=== PATIENT | male | born 1935 | race African-American/Black ===

== ENCOUNTER 2017-06-03 12:11 | Emergency (ER) | payer OTHER ==
[~2017-06-03] VITALS: Ht 175.3 cm; Wt 72.6 kg
[2017-06-03] MEDS ORDERED: DOXY100C2 PO (12:48)
--- NOTE | 2017-06-03 12:48 | PHYS DOC ---
Adult General Chief Complaint Chief Complaint: LOWER EXT PAIN [facility] HPI Patient is a 82 year old male who presents with pain to the left great toe. Patient states that 3 weeks ago he was seen by a device sales consultant and had nail trimming done at that time. Patient states over the past 2 weeks he has noticed discomfort in the toe. Patient started noticing redness along the medial aspect of the left great toe over the past couple days. The patient is concerned that he may be developing infection in that toe. The patient attempted contacting his device sales consultant but stated that he would not be able to be seen until next week. The patient denies any somatic symptoms associated. Patient states that the pain worsens whenever he tries to bear weight and walk. Patient has not taken any medications for his symptoms at this time. Review of Systems Review of Systems Constitutional: Denies fever or chills [] Eyes: Denies change in visual acuity, redness, or eye pain [] HENT: Denies nasal congestion or sore throat [] Respiratory: Denies cough or shortness of breath [] Cardiovascular: No additional information not addressed in HPI [] GI: Denies abdominal pain, nausea, vomiting, bloody stools or diarrhea [] : Denies dysuria or hematuria [] Musculoskeletal: Left great toe pain [] Integument: Denies rash or skin lesions [] Neurologic: Denies headache, focal weakness or sensory changes [] Allergies Allergies No known drug allergies Physical Exam Physical Exam Constitutional: Alert, afebrile, appears in mild discomfort. [] HENT: Normocephalic, atraumatic, bilateral external ears normal, oropharynx moist, no oral exudates, nose normal. [] Eyes: PERRLA, EOMI, conjunctiva normal, no discharge. [] Neck: Normal range of motion, no tenderness, supple, no stridor. [] Cardiovascular:Heart rate regular rhythm, no murmur [] Lungs & Thorax: Bilateral breath sounds clear to auscultation [] Abdomen: Bowel sounds normal, soft, no tenderness, no masses, no pulsatile masses. [] Skin: Warm, dry, no erythema, no rash. [] Back: No tenderness, no CVA tenderness. [] Extremities: Mild erythema along nailbed of left great toe, medial tenderness to palpation, no fluctuance, range of motion normal, capillary refill less than 2 seconds. [] Neurologic: Alert and oriented X 3, normal motor function, normal sensory function, no focal deficits noted. [] Current Patient Data Vital Signs Vital Signs Date Time Temp Pulse Resp B/P (MAP) Pulse Ox O2 Delivery O2 Flow Rate FiO2 06/03/17 13:10 97.9 71 15 120/59 (79) 98 Room Air Lab Results None performed EKG EKG Not performed [] Radiology/Procedures Radiology/Procedures Not performed [] Course & Med Decision Making Course & Med Decision Making Pertinent Labs and Imaging studies reviewed. (See chart for details) Patient has findings concerning for early cellulitis of the left great toe. Patient will be started on doxycycline for treatment. Advised use of Aleve and Tylenol as needed for discomfort. Recommended follow-up with the patient's device sales consultant in the next 3-4 days and return to emergency department for any worsening symptoms. Patient voiced understanding and in agreement with treatment plan. Dragon Disclaimer Dragon Disclaimer This chart was dictated in whole or in part using Voice Recognition software in a busy, high-work load, and often noisy Emergency Department environment. It may contain unintended and wholly unrecognized errors or omissions. Departure Departure: Impression: Primary Impression: Cellulitis of toe Disposition: 01 HOME, SELF-CARE Condition: STABLE Referrals: MAYELIN ROSENBERG MD (PCP) Patient Instructions: Cellulitis Additional Instructions: Follow-up with your device sales consultant in the next 3-4 days. Return to the emergency department for any worsening symptoms. Scripts Doxycycline Hyclate (DOXYCYCLINE HYCLATE) 100 Mg Capsule 1 CAP PO BID, #20 CAP Prov: GHAZAL FAM MD 06/03/17 Problem Qualifiers Primary Impression: Cellulitis of toe Laterality: left Qualified Codes: L03.032 - Cellulitis of left toe GHAZAL FAM MD Jun 03, 2017 12:48
[2017-06-03 13:10] VITALS: BP 120/59
== END 2017-06-03 13:15 | disposition home or self-care (01) ==
LOC: ER 12:11
DX: L03.032 Cellulitis of left toe (principal)
CPT/HCPCS: 99283

== ENCOUNTER 2017-07-18 17:50 | Inpatient (IN) | payer OTHER ==
[~2017-07-18] VITALS: Ht 177.8 cm; Wt 75.8 kg
[~2017-07-18 17:50] MED LIST: DOXY100C2 PO
--- NOTE | 2017-07-18 18:53 | PHYS DOC ---
Past History Past Medical History: Arthritis, Diabetes (no medications presently), High Cholesterol, Heart Disease Past Surgical History: Appendectomy, Pacemaker, Other Smoking: Non-smoker Alcohol Use: None Drug Use: None Social History PCP is at Adult [facility] Chief Complaint Chief Complaint: GI PROBLEM HPI HPI Patient is a 82 year old male who presents with abdominal pain. He states this started yesterday around noon. He says the pain is right upper quadrant. No vomiting. He has had a little loose stool, no blood. No urinary complaints. No testicular pain or swelling. He did travel to [place] 2 weeks ago, drove. No fever with this illness. No chest pain. Review of Systems Review of Systems Constitutional: Denies fever or chills Eyes: Denies change in visual acuity, redness, or eye pain HENT: Denies nasal congestion or sore throat Respiratory: Denies cough or shortness of breath Cardiovascular: No chest pain GI: POS abdominal pain, No nausea, vomiting, No bloody stools some loose diarrhea (non watery) : Denies dysuria or hematuria Musculoskeletal: Denies back pain or joint pain Integument: Denies rash or skin lesions Neurologic: Denies headache, focal weakness or sensory changes Allergies Allergies Allergies Coded Allergies Type Severity Reaction Last Updated Verified No Known Drug Allergies 06/03/17 No Physical Exam Physical Exam Constitutional: Well developed, well nourished, no acute distress, non-toxic appearance. HENT: Normocephalic, atraumatic, bilateral external ears normal, oropharynx moist, no oral exudates, nose normal. Eyes: PERRLA, EOMI, conjunctiva normal, no discharge. Neck: Normal range of motion, no tenderness, supple, no stridor. Cardiovascular:Heart rate regular rhythm, no murmur Lungs & Thorax: Bilateral breath sounds clear to auscultation Abdomen: Bowel sounds normal, soft, tenderness to palpation of RUQ, no masses, no pulsatile masses. Skin: Warm, dry, no erythema, no rash. Back: No tenderness, no CVA tenderness. Extremities: No tenderness, no cyanosis, no clubbing, ROM intact, no edema. Neurologic: Alert and oriented X 3, normal motor function, normal sensory function, no focal deficits noted. Psychologic: Affect normal, judgement normal, mood normal. Current Patient Data Vital Signs Vital Signs Date Time Temp Pulse Resp B/P (MAP) Pulse Ox O2 Delivery O2 Flow Rate FiO2 07/18/17 18:10 100.0 83 20 96 Room Air Lab Results Laboratory Tests Test 07/18/17 19:11 White Blood Count 6.7 x10^3/uL (4.0-11.0) Red Blood Count 5.24 x10^6/uL (4.30-5.70) Hemoglobin 14.6 g/dL (13.0-17.5) Hematocrit 44.0 % (39.0-53.0) Mean Corpuscular Volume 84 fL (79-100) Mean Corpuscular Hemoglobin 28 pg (25-35) Mean Corpuscular Hemoglobin Concent 33 g/dL (31-37) Red Cell Distribution Width 16.1 % (11.5-14.5) Platelet Count 153 x10^3/uL (140-400) Neutrophils (%) (Auto) 75 % (31-73) Lymphocytes (%) (Auto) 11 % (24-48) Monocytes (%) (Auto) 13 % (0-9) Eosinophils (%) (Auto) 1 % (0-3) Basophils (%) (Auto) 0 % (0-3) Neutrophils # (Auto) 5.1 x10^3uL (1.8-7.7) Lymphocytes # (Auto) 0.7 x10^3/uL (1.0-4.8) Monocytes # (Auto) 0.9 x10^3/uL (0.0-1.1) Eosinophils # (Auto) 0.0 x10^3/uL (0.0-0.7) Basophils # (Auto) 0.0 x10^3/uL (0.0-0.2) Sodium Level 139 mmol/L (136-145) Potassium Level 4.1 mmol/L (3.5-5.1) Chloride Level 103 mmol/L (98-107) Carbon Dioxide Level 30 mmol/L (21-32) Anion Gap 6 (6-14) Blood Urea Nitrogen 13 mg/dL (8-26) Creatinine 1.5 mg/dL (0.7-1.3) Estimated GFR (Cockcroft-Gault) 54.2 BUN/Creatinine Ratio 9 (6-20) Glucose Level 122 mg/dL (70-99) Calcium Level 9.0 mg/dL (8.5-10.1) Total Bilirubin 0.7 mg/dL (0.2-1.0) Aspartate Amino Transf (AST/SGOT) 16 U/L (15-37) Alanine Aminotransferase (ALT/SGPT) 19 U/L (16-63) Alkaline Phosphatase 98 U/L (46-116) Creatine Kinase 152 U/L (39-308) Troponin I Quantitative 0.111 ng/mL (0-0.055) Total Protein 7.8 g/dL (6.4-8.2) Albumin 3.9 g/dL (3.4-5.0) Albumin/Globulin Ratio 1.0 (1.0-1.7) Lipase 113 U/L (73-393) EKG EKG EKG interpreted by myself at 1846 PM shows sinus rhythm, rate of 82, left cornell axis. PAC noted. No acute ST elevation. Radiology/Procedures Radiology/Procedures CXR: Temperature by myself at 2015 p.m. shows increased vascularity, chronic interstitial changes, pleural effusion versus infiltrate versus atelectasis right lower lobe. Course & Med Decision Making Course & Med Decision Making Evaluated patient upon my arrival on shift. IV fluids established. My differential for abdominal pain includes but is not limited to ; cholelithiasis or cholecystitis; renal stones; ureterolithiasis; pancreatitis; urinary tract infection; bowel obstruction; irritable bowel., AAA At 2000 PM: Lab finalized lab and called with elev Trop. Patient may be having an angina variant presenting as upper abdominal pain. Nitropaste to chest wall. ASA chew. MACE Scoring: History: Highly suspicious (2 points); Moderately suspicious (1 point). Slightly suspicious (0 point). EKG: ST segment depression (2 points). Nonspecific repolarization disturbance ( 1 point). normal (0 point) Age: Greater than 65 (2 points), 65-45 (1 point); less than 45 years old (0 points). Risk factors:> 3 risk factors (2 points), 1-2 risk factors (one point), no risk factors (0 point). Troponin: > 2 times normal (2 points), 1-2 times normal (1 point) normal limits (0 point) Total score: ___6___ Score % pts MACE/n MACE Policy 0-3: 32% 1.9% 0.05% Discharge 4-6: 51% 413/3136 13% 1.3% Observation Risk management 7-10: 17% 518/1045 50% 2.8% Observation Treatment, CAGb My DEYVI score (for NSTEMI) Age >65 1 3 CAD risk factors* 0 Known CAD (Stenosis 50%) 0 ASA use in past 7 days 0 Severe angina ( 2 episodes in 24 hrs) 0 EKG changes >=0.5 mm 0 Pos Cardiac marker 1 DEYVI SCORE [address] Zacarias at 2000 PM and he accepted admission. Will admit to ICU. Consult cardiology tonight. Spoke with Dr. stevens; dose with lovenox tonight and keep NPO. I have spoken with the patient and/or caregivers. I have explained the patient' s condition, diagnosis and treatment plan based on the information available to me at this time. I have answered the patient's and/or caregiver's questions and addressed any concerns. The patient and/or caregivers have as good an understanding of the patient's diagnosis, condition and treatment plan as can be expected at this point. The patient has been stabilized within the capability of the emergency department. The patient will be transported for further care and management or will be moved to an observation or inpatient service. I have communicated with the staff or medical practitioner taking over this patient's care. I spent approximately 30 minutes working and engaged directly in the patient care providing critical care evaluation this includes but not limited to time spent engaged in work directly related to the individual patients care. I spent time at the bedside, reviewing test results, discussing the case with staff, documenting the medical record and time spent with EMS discussing specific treatment issues when the patient presented and during his evaluation. This includes any discussion and updates with family members and/or patient. Dragon Disclaimer Dragon Disclaimer This chart was dictated in whole or in part using Voice Recognition software in a busy, high-work load, and often noisy Emergency Department environment. It may contain unintended and wholly unrecognized errors or omissions. Departure Departure: Impression: Primary Impression: Elevated troponin I level Additional Impressions: Epigastric pain Acute coronary syndrome Disposition: ADMITTED INPATIENT Condition: STABLE Referrals: MAYELIN ROSENBERG MD (PCP) Problem Qualifiers STEVEN JIMENEZ MD Jul 18, 2017 18:53
[2017-07-18 19:48] LABS: BASO % 0 % (0-3); EOS % 1 % (0-3); HEMOGLOBIN 14.6 g/dL (13.0-17.5); LYMPH # 0.7 x10^3/uL (1.0-4.8); LYMPH % 11 % (24-48); MEAN CORPUSCULAR HEMOGLOBIN 28 pg (25-35); MEAN CORPUSCULAR HGB CONC 33 g/dL (31-37); MEAN CORPUSCULAR VOLUME 84 fL (79-100); MONO # 0.9 x10^3/uL (0.0-1.1); MONO % 13 % (0-9); NEUT # 5.1 x10^3uL (1.8-7.7); NEUT % 75 % (31-73); PLATELET COUNT 153 x10^3/uL (140-400); RED BLOOD COUNT 5.24 x10^6/uL (4.30-5.70); RED CELL DISTRIBUTION WIDTH 16.1 % (11.5-14.5); WHITE BLOOD COUNT 6.7 x10^3/uL (4.0-11.0)
[2017-07-18 19:59] LABS: ALBUMIN 3.9 g/dL (3.4-5.0); CREATININE 1.5 mg/dL (0.7-1.3); GFR 54.2; POTASSIUM 4.1 mmol/L (3.5-5.1); TOTAL BILIRUBIN 0.7 mg/dL (0.2-1.0); TOTAL PROTEIN 7.8 g/dL (6.4-8.2)
[2017-07-18] MEDS ORDERED: ASPIRIN 81 MG TAB.CHEW ONE (20:20)
[2017-07-18] MEDS ORDERED: NITROGLYCERIN OINT 1 GM PACKET. TP ONE (20:30)
[2017-07-18] MEDS ORDERED: ASPIRIN 81 MG TAB.CHEW PO ONE (20:30)
[2017-07-18] MEDS ORDERED: ENOXAPARIN ** NOTE DOSE ** SYRINGE SQ ONE (20:45)
[2017-07-18] MEDS ORDERED: NITROGLYCERIN SUBLINGUAL 0.4 MG BOTTLE OF 25. SL PRN ×2 (21:00)
[2017-07-18] MEDS ORDERED: 0.9 % SODIUM CHLORIDE 10 ML DISP.SYRIN. IV PRN (21:00)
[2017-07-18] MEDS ORDERED: ONDANSETRON PF 4 MG/2 ML VIAL. IV PRN (21:00)
[2017-07-18 21:45] VITALS: BP 132/78
[2017-07-18 22:45] VITALS: BP 143/71
--- NOTE | 2017-07-18 23:10 | EKG ---
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
[2017-07-18 23:45] VITALS: BP 129/66
[2017-07-19 00:45] VITALS: BP 140/71
[2017-07-19] MEDS ORDERED: ROSU10TA PO (01:03)
[2017-07-19] MEDS ORDERED: LEVO125T5 PO (01:03)
[2017-07-19] MEDS: MORPHINE SULFATE 2 MG/ML DISP.SYRIN. IV PRN ×2 (01:41→04:36)
[2017-07-19 01:45] VITALS: BP 119/57
[2017-07-19] MEDS ORDERED: IV NORMAL SALINE 1,000ML 1,000 ML IV SCH (01:45)
[2017-07-19 02:45] VITALS: BP 133/67
[2017-07-19 04:00] VITALS: BP 147/75
--- NOTE | 2017-07-19 08:05 | RAD ---
Exam performed: One view chest. Indication: epigastric pain Date of Service: 07/18/2017 10:14 PM Comparison: None available. Single AP upright portable view chest findings: Study somewhat limited due to positioning. Cardiomediastinal silhouette is within limits of normal. Minimal linear opacities in the right lung base probably atelectasis with minimal blunting of the right costophrenic angle. Bipolar pacemaker. Left shoulder arthroplasty. The bony structures are normal. Impression: Right basilar atelectasis with probable pleural effusion or pleural thickening.
[2017-07-19 08:20] LABS: ALBUMIN 3.2 g/dL (3.4-5.0); ALBUMIN/GLOBULIN RATIO 0.9 (1.0-1.7); CALCIUM 8.4 mg/dL (8.5-10.1); CREATININE 1.3 mg/dL (0.7-1.3); GFR 63.9; MAGNESIUM 1.9 mg/dL (1.8-2.4); POTASSIUM 4.5 mmol/L (3.5-5.1); TOTAL BILIRUBIN 1.1 mg/dL (0.2-1.0); TOTAL PROTEIN 6.9 g/dL (6.4-8.2)
[2017-07-19 08:24] LABS: BASO # 0.1 x10^3/uL (0.0-0.2); BASO % 1 % (0-3); EOS % 1 % (0-3); HEMATOCRIT 42.5 % (39.0-53.0); LYMPH # 0.9 x10^3/uL (1.0-4.8); LYMPH % 12 % (24-48); MEAN CORPUSCULAR HEMOGLOBIN 27 pg (25-35); MEAN CORPUSCULAR HGB CONC 33 g/dL (31-37); MEAN CORPUSCULAR VOLUME 83 fL (79-100); MONO # 1.1 x10^3/uL (0.0-1.1); MONO % 15 % (0-9); NEUT % 71 % (31-73); PLATELET COUNT 153 x10^3/uL (140-400); RED BLOOD COUNT 5.12 x10^6/uL (4.30-5.70); RED CELL DISTRIBUTION WIDTH 15.9 % (11.5-14.5)
[2017-07-19 08:27] VITALS: BP 119/67
[2017-07-19] MEDS ORDERED: METOPROLOL SUCC 24HR ER 25 MG TAB.ER.24H. PO SCH (09:30)
[2017-07-19] MEDS ORDERED: ASPIRIN ENTERIC COATED 81 MG TABLET.DR. PO SCH (09:30)
--- NOTE | 2017-07-19 09:54 | PDOC2 ---
CONSULT Date of Admission DATE: 07/19/17 TIME: 09:53 Reason for Consult: chest pain Problem List Problems Medical Problems: (1) Acute coronary syndrome Status: Acute (2) Elevated troponin I level Status: Acute (3) Epigastric pain Status: Acute History of Present Illness Mr Davenport is an 82 year old male with history of hypertension, hyperlipidemia, 15 years of diabetes and PPM. He presents with complaints of pain in right "ribs" that was worse with movement and deep inspiration. He reports he has been assisting his who is wheelchair bound and doing quite a bit of lifting. He denies other complaints of chest discomfort, dyspnea or palpitations. He denies congestive symptoms. He does complain of claudication with walking 3-4 blocks which resolves with rest in 10-15 minutes. He reports that he was told he had blockage from ankles to feet but nothing else. He reports his diabetes has been well controlled with diet for some time. Past Medical History pacemaker hypertension, hyperlipidemia PAD, diabetes mellitus Past Surgical History bilateral shoulder surgeries, pacemaker placement and appendectomy Family History diabetes and hypertension Social History non smoker, no significant ETOH, no illicit drugs Current Medications Current Medications Aspirin (Children'S Aspirin) 324 mg 1X ONCE PO Last administered on 07/18/17 20:24; Start 07/18/17 at 20:30; Stop 07/18/17 at 20:31; Status DC Nitroglycerin (Nitro-Bid Oint) 1 inch 1X ONCE TP Last administered on 20:24; Start 07/18/17 at 20:30; Stop 07/18/17 at 20:31; Status DC Aspirin (Children'S Aspirin) 81 mg STK-MED ONCE .ROUTE ; Start 07/18/17 at 20:20 ; Stop 07/18/17 at 20:21; Status DC Enoxaparin Sodium (Lovenox 80mg Syringe) 80 mg 1X ONCE SQ Last administered on 07/18/17 20:44; Start 07/18/17 at 20:45; Stop 07/18/17 at 20:46; Status DC Ondansetron HCl (Zofran) 4 mg PRN Q4HRS PRN IV NAUSEA/VOMITING Last administered on 07/19/17 01:40; Start 07/18/17 at 21:00; Stop 07/19/17 at 20:59 Morphine Sulfate (Morphine 2mg Syringe) 2 mg PRN Q2HR PRN IV PAIN Last administered on 07/19/17 04:36; Start 07/18/17 at 21:00; Stop 07/19/17 at 20:59 Nitroglycerin (Nitrostat) 0.4 mg PRN Q5MIN PRN SL CHEST PAIN; Start 07/18/17 at 21:00; Stop 07/19/17 at 20:59 Sodium Chloride (Normal Saline Flush) 3 ml QSHIFT PRN IV AFTER MEDS AND BLOOD DRAWS Last administered on 07/19/17 08:08; Start 07/18/17 at 21:00 Nitroglycerin (Nitrostat) 0.4 mg PRN Q5MIN PRN SL CHEST PAIN; Start 07/18/17 at 21:00 Sodium Chloride 1,000 ml @ 100 mls/hr Q10H IV Last administered on 07/19/17 02:33; Start 07/19/17 at 01:45 Aspirin (Aspirin Enteric Coated) 81 mg DAILYWBKFT PO ; Start 07/19/17 at 09:30 Metoprolol Succinate (Toprol Xl) 25 mg DAILY PO ; Start 07/19/17 at 09:30 Active Scripts Active Doxycycline Hyclate 100 Mg Capsule 1 Cap PO BID Reported Levothyroxine Sodium 125 Mcg Tablet 125 Mcg PO DAILY07 Rosuvastatin Calcium 10 Mg Tablet 10 Mg PO QHS Allergies: Coded Allergies: No Known Drug Allergies (Unverified , 06/03/17) Review of System as per HPI or negative General: Alert, Oriented X3, Cooperative, No acute distress HEENT: Atraumatic, EOMI, Mucous membr. moist/pink Lungs: Clear to auscultation, Normal air movement Heart: Regular rate, Normal S1, Normal S2, Other (ESM 2/6) Abdomen: Normal bowel sounds, Soft, No tenderness Extremities: No cyanosis, No edema, Other (palpable DP pulses bilaterally) Neuro: Normal speech, Strength at 5/5 X4 ext Psych/Mental Status: Mental status NL, Mood NL VITALS Vital Signs Date Time Temp Pulse Resp B/P (MAP) Pulse Ox O2 Delivery O2 Flow Rate FiO2 07/19/17 08:27 99.3 66 20 119/67 (84) 97 Nasal Cannula 2.0 Labs Laboratory Tests Test 07/18/17 19:11 07/19/17 01:15 07/19/17 07:11 White Blood Count 6.7 x10^3/uL (4.0-11.0) 7.0 x10^3/uL (4.0-11.0) Red Blood Count 5.24 x10^6/uL (4.30-5.70) 5.12 x10^6/uL (4.30-5.70) Hemoglobin 14.6 g/dL (13.0-17.5) 14.0 g/dL (13.0-17.5) Hematocrit 44.0 % (39.0-53.0) 42.5 % (39.0-53.0) Mean Corpuscular Volume 84 fL (79-100) 83 fL (79-100) Mean Corpuscular Hemoglobin 28 pg (25-35) 27 pg (25-35) Mean Corpuscular Hemoglobin Concent 33 g/dL (31-37) 33 g/dL (31-37) Red Cell Distribution Width 16.1 % (11.5-14.5) 15.9 % (11.5-14.5) Platelet Count 153 x10^3/uL (140-400) 153 x10^3/uL (140-400) Neutrophils (%) (Auto) 75 % (31-73) 71 % (31-73) Lymphocytes (%) (Auto) 11 % (24-48) 12 % (24-48) Monocytes (%) (Auto) 13 % (0-9) 15 % (0-9) Eosinophils (%) (Auto) 1 % (0-3) 1 % (0-3) Basophils (%) (Auto) 0 % (0-3) 1 % (0-3) Neutrophils # (Auto) 5.1 x10^3uL (1.8-7.7) 5.0 x10^3uL (1.8-7.7) Lymphocytes # (Auto) 0.7 x10^3/uL (1.0-4.8) 0.9 x10^3/uL (1.0-4.8) Monocytes # (Auto) 0.9 x10^3/uL (0.0-1.1) 1.1 x10^3/uL (0.0-1.1) Eosinophils # (Auto) 0.0 x10^3/uL (0.0-0.7) 0.0 x10^3/uL (0.0-0.7) Basophils # (Auto) 0.0 x10^3/uL (0.0-0.2) 0.1 x10^3/uL (0.0-0.2) Sodium Level 139 mmol/L (136-145) 139 mmol/L (136-145) Potassium Level 4.1 mmol/L (3.5-5.1) 4.5 mmol/L (3.5-5.1) Chloride Level 103 mmol/L (98-107) 104 mmol/L (98-107) Carbon Dioxide Level 30 mmol/L (21-32) 28 mmol/L (21-32) Anion Gap 6 (6-14) 7 (6-14) Blood Urea Nitrogen 13 mg/dL (8-26) 12 mg/dL (8-26) Creatinine 1.5 mg/dL (0.7-1.3) 1.3 mg/dL (0.7-1.3) Estimated GFR (Cockcroft-Gault) 54.2 63.9 BUN/Creatinine Ratio 9 (6-20) 9 (6-20) Glucose Level 122 mg/dL (70-99) 128 mg/dL (70-99) Calcium Level 9.0 mg/dL (8.5-10.1) 8.4 mg/dL (8.5-10.1) Total Bilirubin 0.7 mg/dL (0.2-1.0) 1.1 mg/dL (0.2-1.0) Aspartate Amino Transf (AST/SGOT) 16 U/L (15-37) 13 U/L (15-37) Alanine Aminotransferase (ALT/SGPT) 19 U/L (16-63) 15 U/L (16-63) Alkaline Phosphatase 98 U/L (46-116) 81 U/L (46-116) Creatine Kinase 152 U/L (39-308) 112 U/L (39-308) Troponin I Quantitative 0.111 ng/mL (0-0.055) 0.142 ng/mL (0-0.055) 0.125 ng/mL (0-0.055) AX-Ctv-N-Type Natriuretic Peptide 1055 pg/mL (0-449) Total Protein 7.8 g/dL (6.4-8.2) 6.9 g/dL (6.4-8.2) Albumin 3.9 g/dL (3.4-5.0) 3.2 g/dL (3.4-5.0) Albumin/Globulin Ratio 1.0 (1.0-1.7) 0.9 (1.0-1.7) Lipase 113 U/L (73-393) Creatine Kinase MB (Mass) 1.1 ng/mL (0.0-3.6) Creatine Kinase MB Relative Index 1.0 % (0-4) Magnesium Level 1.9 mg/dL (1.8-2.4) Images EKG - no acute ischemic changes Assessment/Plan 1. NSTEMI - with risk factors to include hypertension, hyperlipidemia, PAD and 15 year diabetes will plan for transfer for cardiac cath. 2. CP - atypical 3. hypertension - controlled 4. hyperlipidemia - lipids pending 5. diabetes - diet controlled Start aspirin, beta jovanny and obtain echo. Transfer to [facility] for cardiac cath later today. Risks, benefits, and alternatives discussed with patient. Questions answered. POC discussed with Dr Rubi. Problems: AMANDO SU APRN Jul 19, 2017 09:54
[2017-07-19 10:47] VITALS: BP 124/59
--- NOTE | 2017-07-19 14:11 | CARD ---
APPROVED REPORT EXAM: Two-dimensional and M-mode echocardiogram with Doppler and color Doppler. Other Information Quality : Average Rhythm : Pacemaker INDICATION elevated troponin level 2D DIMENSIONS RVDd2.9 (2.9-3.5cm)Left Atrium(2D)4.4 (1.6-4.0cm) IVSd1.6 (0.7-1.1cm)Aortic Root(2D)3.0 (2.0-3.7cm) LVDd5.3 (3.9-5.9cm)LVOT Diameter2.1 (1.8-2.4cm) PWd1.6 (0.7-1.1cm)LVDs4.5 (2.5-4.0cm) FS (%) 14.2 %SV40.4 ml Aortic Valve AoV Peak Samy.199.1cm/sAoV VTI41.3cm AO Peak GR.15.9mmHgLVOT Peak Samy.90.8cm/s LVOT VTI 18.00cmAO Mean GR.10mmHg JANICE (VMAX)1.19jf3NSJ (VTI)1.51cm2 Mitral Valve MV E Sfjdaamx01.2cm/sMV DECEL BATV225qc MV A Bpyiiean51.3cm/sMV HBJ83sk E/A Ratio0.8MV A Rgnzlfiz288he MVA (PHT)3.87cm2 Tricuspid Valve TR P. Mibwjqvo732gn/sRAP FEQCEZAU6xjXi TR Peak Gr.89iaGlYBCI63skJg LEFT VENTRICLE The left ventricle is normal size. There is moderate concentric left ventricular hypertrophy. The Eje ction Fraction is estimated at 45-50%. Basal inferoposterior wall hypokinesis. Tissue Doppler imaging reveals mild left ventricular diastolic dysfunction. Transmitral Doppler flow pattern is Grade I-abn ormal relaxation pattern. RIGHT VENTRICLE The right ventricle is normal size. The right ventricular systolic function is normal. There is a pac emaker lead seen in the right ventricle and atrium. ATRIA The left atrium is mildly dilated. The right atrium size is normal. The interatrial septum is intact with no evidence for an atrial septal defect or patent foramen ovale as noted on 2-D or Doppler imagi ng. AORTIC VALVE The aortic valve is mildly calcified. Doppler and Color Flow revealed no significant aortic regurgita tion. Calculated aortic valve area is 1.5 cm2 with maximum pressure gradient of 16 mmHg and mean pres sure gradient of 10 mmHg. Doppler and color-flow analysis revealed mild aortic stenosis. MITRAL VALVE Mitral annular calcification is borderline. The mitral valve leaflets are thickened. There is no mitr al valve stenosis. Doppler and Color Flow revealed mild mitral regurgitation. TRICUSPID VALVE The tricuspid valve is normal in structure and function. Doppler and Color Flow revealed trace to mil d tricuspid regurgitation. The PA pressure was estimated at 30 mmHg. There is no tricuspid valve sten osis. PULMONIC VALVE The pulmonic valve is not well visualized. Doppler and Color Flow revealed no pulmonic valvular regur gitation. There is no pulmonic valvular stenosis. GREAT VESSELS The aortic root is normal in size. Pulmonary veins not recorded. The IVC was not visualized. PERICARDIAL EFFUSION There is no evidence of significant pericardial effusion. Critical Notification Date: 07/19/2017 Time: 10:44 Other Discipline : Zita Salas APRN Critical Value: Yes <Conclusion> Basal inferoposterior wall hypokinesis. The Ejection Fraction is estimated at 45-50%. Transmitral Doppler flow pattern is Grade I-abnormal relaxation pattern. There is a pacemaker lead seen in the right atrium and ventricle Mild aortic stenosis. Mild mitral regurgitation. Trace to mild tricuspid regurgitation. The PA pressure was estimated at 30 mmHg. There is no evidence of significant pericardial effusion.
--- NOTE | 2017-07-19 19:25 | SSS ---
ADMIT DATE: HISTORY OF PRESENT ILLNESS: The patient is an 82-year-old -[place] male patient who came to the Emergency Room complaining of right-sided chest pain that is worse with movement and taking a deep inspiration. He denied any nausea, vomiting, denied any shortness of breath or diaphoresis. He was seen in the Emergency Room and was found to have elevated troponin and was admitted to do 2 more sets of cardiac enzyme and to consult the Cardiology team. PAST MEDICAL HISTORY: Significant for hypertension, hyperlipidemia, peripheral arterial disease and diabetes mellitus. PAST SURGICAL HISTORY: Significant for bilateral shoulder surgeries, permanent pacemaker placement and appendectomy. FAMILY HISTORY: Positive for diabetes, hypertension. SOCIAL HISTORY: He is , has 3 daughters and 1 son. He never smoked, does not drink alcohol or use any recreational drugs. He lives with his and takes care of her as she has multiple sclerosis. REVIEW OF SYSTEMS: As per history of present illness. ALLERGIES: No known drug allergies. MEDICATIONS: He is currently on following medications: 1. Doxycycline hyclate 100 mg capsule twice a day. 2. Levothyroxine sodium 125 mcg once a day. 3. Crestor 10 mg at bedtime. PHYSICAL EXAMINATION: GENERAL: On examining him, he looked well and was clearly in no apparent respiratory distress, paled, but no jaundiced or cyanosed. No thyromegaly. No jugular venous distension. No limb edema. VITAL SIGNS: His heart rate was 69, blood pressure 124/59, temperature was 99.1, respiratory rate 20, and oxygen saturation was 97% on 2 liters of oxygen by nasal cannula. HEENT: Examination of head, eyes, ears, nose and throat showed normocephalic, atraumatic. NECK: Supple. HEART: Showed normal first and second heart sounds with no gallop, rub or murmur. CHEST: Clear to auscultation. No crepitation or rhonchi. ABDOMEN: Distended, soft, nontender. No guarding or rigidity. No organomegaly. All hernial orifices are intact. Bowel sounds normal. NEUROLOGIC: He was awake, alert, responding appropriately. Cranial nerves are intact. EXTREMITIES: He moves extremities without difficulty. LABORATORY AND DIAGNOSTIC DATA: Lab work showed a white cell count of 6700, hemoglobin 14.6, hematocrit 44, MCV 84 and platelet count 253,000. His chemistry showed a serum sodium of 139, potassium 4.1, chloride 103, bicarbonate 30, anion gap of 6, BUN 13, creatinine 1.5. Estimated GFR was ____ mL per minute. His glucose was 122, calcium was 9. Total bilirubin, AST, ALT, alkaline phosphatase were normal. He has 3 sets of cardiac enzyme, showed first set of troponin was 0.111, second one is 0.142 and the third one was 0.125. His EKG showed no ischemic changes and therefore, given the multiple risk factors for coronary artery disease, who was diagnosed with non-ST segment elevation myocardial infarction and given that he is diabetic, has hypertension and hyperlipidemia, he was transferred to [facility] for cardiac catheterization. NAYELI HARDIN MD DR: SANFORD/dante JOB#: [id number] / [id number]
== END 2017-07-19 11:05 | disposition short-term general hospital (02) | DRG 282 ==
LOC: ER 17:50 → ICU 20:30
PROVIDERS: ADMIT Internal Medicine; ATTEND Internal Medicine
DX: I21.4 Non-ST elevation (NSTEMI) myocardial infarction (principal); E11.51 Type 2 diabetes mellitus with diabetic peripheral angiopathy without gangrene; M19.90 Unspecified osteoarthritis, unspecified site; E78.00 Pure hypercholesterolemia, unspecified; I10 Essential (primary) hypertension; E78.5 Hyperlipidemia, unspecified; Z95.0 Presence of cardiac pacemaker; Z83.3 Family history of diabetes mellitus; Z82.49 Family history of ischemic heart disease and other diseases of the circulatory system; Z90.49 Acquired absence of other specified parts of digestive tract
CPT/HCPCS: 36415; 71010; 80053; 80061; 82550; 82553; 83690; 83735; 83880; 84484; 85025; 87641; 93005; 93306; J1650; J2270; J2405; J7030